=== PATIENT | female | born 1950 | race Caucasian/White ===

== ENCOUNTER 2022-04-04 09:58 | Emergency (ER) | payer MEDICARE, BC ==
[~2022-04-04] VITALS: Ht 160 cm; Wt 63.5 kg
[2022-04-04] MEDS ORDERED: ATOR10TA PO (10:16)
[2022-04-04] MEDS ORDERED: ROSU5TAB PO (10:16)
[2022-04-04] MEDS ORDERED: KETOROLAC TROMETHAMINE 30 MG INJ IM ONE (10:45)
[2022-04-04] MEDS ORDERED: LIDOCAINE 5% PATCH TD ONE ×2 (10:45→10:49)
[2022-04-04] MEDS ORDERED: KETOROLAC TROMETHAMINE 30 MG INJ ONE (10:49)
[2022-04-04 12:06] VITALS: BP 148/90
--- NOTE | 2022-04-04 12:06 | NUR ---
Crutches dispensed. Pt instructed on proper use of crutches. Patient able to demonstrate correct use of crutches.
--- NOTE | 2022-04-04 12:07 | NUR ---
Patient discharged to home in stable condition. Written and verbal after care instructions given. Patient verbalizes understanding of instructions. Stressed follow up or return to ER for worsening s/s.
== END 2022-04-04 12:15 | disposition home or self-care (01) ==
LOC: ER 09:59
DX: M25.561 Pain in right knee (principal); M17.11 Unilateral primary osteoarthritis, right knee; M25.761 Osteophyte, right knee; I10 Essential (primary) hypertension; E78.5 Hyperlipidemia, unspecified; Z79.899 Other long term (current) drug therapy
CPT/HCPCS: 99283; 29505; 73564; 96372; J1885; A4663